=== PATIENT | female | born 1960 | race American Indian/Alaskan Native ===

== ENCOUNTER 2018-01-18 16:12 | Emergency (ER) | payer OTHER ==
[~2018-01-18] VITALS: Ht 160 cm; Wt 126.1 kg
[2018-01-18 17:10] LABS: PLATELET COUNT 231 K/uL (152-353)
[2018-01-18 17:33] LABS: PARTIAL THROMBOPLASTIN TIME 26.6 SECONDS (24.5-33.6)
[2018-01-18 18:00] VITALS: BP 152/76; TEMP 97.9
== END 2018-01-18 18:00 | disposition home or self-care (01) ==
LOC: ED 16:12
DX: R04.0 Epistaxis (principal); I10 Essential (primary) hypertension
CPT/HCPCS: 36415; 85027; 85610; 85730; 99283

== ENCOUNTER 2018-04-06 19:45 | Emergency (ER) | payer OTHER ==
[~2018-04-06] VITALS: Ht 160 cm; Wt 127.0 kg
[2018-04-06 19:50] VITALS: TEMP 98.3
[2018-04-06 21:25] VITALS: BP 120/81
== END 2018-04-06 21:27 | disposition home or self-care (01) ==
LOC: ED 19:45
DX: S52.501A Unspecified fracture of the lower end of right radius, initial encounter for closed fracture (principal); W10.8XXA Fall (on) (from) other stairs and steps, initial encounter; Y93.89 Activity, other specified; Y92.89 Other specified places as the place of occurrence of the external cause; Y99.8 Other external cause status
CPT/HCPCS: 96372; 99283; J1885; L3908

== ENCOUNTER 2020-03-29 12:13 | Emergency (ER) | payer OTHER ==
[~2020-03-29] VITALS: Ht 162.6 cm; Wt 123.8 kg
[2020-03-29 12:15] VITALS: TEMP 98.6
[2020-03-29 13:12] LABS: PLATELET COUNT 219 K/uL (152-353)
[2020-03-29 13:26] LABS: PARTIAL THROMBOPLASTIN TIME 27.1 SECONDS (24.5-33.6)
[2020-03-29 13:41] LABS: POTASSIUM 3.4 mmol/L (3.6-5.2)
[2020-03-29 14:57] VITALS: BP 142/89
== END 2020-03-29 15:04 | disposition home or self-care (01) ==
LOC: ED 12:13
PROVIDERS: Family Medicine
DX: R04.0 Epistaxis (principal); N39.0 Urinary tract infection, site not specified; E87.6 Hypokalemia
CPT/HCPCS: 80053; 81000; 85027; 85610; 85730; 87077; 87086; 87088; 87186; 99283

== ENCOUNTER 2020-03-29 15:26 | Emergency (ER) | payer OTHER ==
[~2020-03-29] VITALS: Ht 162.6 cm; Wt 123.8 kg
[2020-03-29 18:52] VITALS: BP 183/82; TEMP 98.6
== END 2020-03-29 18:52 | disposition home or self-care (01) ==
LOC: ED 15:57
PROC: 2Y41X5Z Packing of Nasal Region using Packing Material (ICD-10-PCS; principal; 2020-03-29)
DX: R04.0 Epistaxis (principal); I10 Essential (primary) hypertension
CPT/HCPCS: 99283

== ENCOUNTER 2020-06-14 02:41 | Emergency (ER) | payer OTHER ==
[~2020-06-14] VITALS: Ht 162.6 cm; Wt 126.6 kg
[2020-06-14 04:17] VITALS: BP 150/73; TEMP 98.1
== END 2020-06-14 04:17 | disposition home or self-care (01) ==
LOC: ED 02:41
DX: S16.1XXA Strain of muscle, fascia and tendon at neck level, initial encounter (principal)
CPT/HCPCS: 96372; 99283; J2175; J2550

== ENCOUNTER 2020-11-17 00:55 | Emergency (ER) | payer OTHER ==
[~2020-11-17] VITALS: Ht 162.6 cm; Wt 123.4 kg
[2020-11-17 02:10] VITALS: BP 151/81; TEMP 97.9
== END 2020-11-17 02:10 | disposition home or self-care (01) ==
LOC: ED 00:55
PROC: 2Y41X5Z Packing of Nasal Region using Packing Material (ICD-10-PCS; principal; 2020-11-17)
DX: R04.0 Epistaxis (principal); I10 Essential (primary) hypertension
CPT/HCPCS: 99283

== ENCOUNTER 2020-11-21 04:10 | Emergency (ER) | payer OTHER ==
[~2020-11-21] VITALS: Ht 162.6 cm; Wt 123.4 kg
[2020-11-21 04:10] VITALS: TEMP 98.1
[2020-11-21 07:35] VITALS: BP 115/56
== END 2020-11-21 07:35 | disposition home or self-care (01) ==
LOC: ED 04:10
PROC: 2Y41X5Z Packing of Nasal Region using Packing Material (ICD-10-PCS; principal; 2020-11-21)
DX: R04.0 Epistaxis (principal)
CPT/HCPCS: 99282

== ENCOUNTER 2020-12-16 01:07 | Emergency (ER) | payer OTHER ==
[~2020-12-16] VITALS: Ht 162.6 cm; Wt 124.3 kg
[2020-12-16 03:25] VITALS: BP 164/82; TEMP 98
== END 2020-12-16 03:25 | disposition home or self-care (01) ==
LOC: ED 01:07
DX: S91.332A Puncture wound without foreign body, left foot, initial encounter (principal); W45.0XXA Nail entering through skin, initial encounter; Y92.098 Other place in other non-institutional residence as the place of occurrence of the external cause
CPT/HCPCS: 90471; 90715; 96372; 99283; J0696; J1885

== ENCOUNTER 2021-04-02 03:30 | Emergency (ER) | payer OTHER ==
[~2021-04-02] VITALS: Ht 162.6 cm; Wt 124.3 kg
[2021-04-02 04:38] LABS: PLATELET COUNT 205 K/uL (152-353)
[2021-04-02 04:54] LABS: POTASSIUM 3.9 mmol/L (3.6-5.2)
[2021-04-02 05:11] LABS: PARTIAL THROMBOPLASTIN TIME 25.8 SECONDS (24.5-33.6)
[2021-04-02 05:45] VITALS: BP 163/80; TEMP 98
== END 2021-04-02 05:45 | disposition home or self-care (01) ==
LOC: ED 03:40
PROVIDERS: Family Medicine
PROC: 2Y41X5Z Packing of Nasal Region using Packing Material (ICD-10-PCS; principal; 2021-04-02)
DX: R04.0 Epistaxis (principal); Z98.890 Other specified postprocedural states
CPT/HCPCS: 36415; 80053; 85027; 85610; 85730; 96374; 99284; J0360

== ENCOUNTER 2021-10-08 06:08 | Emergency (ER) | payer OTHER ==
[~2021-10-08] VITALS: Ht 160 cm; Wt 126.6 kg
[2021-10-08 06:10] VITALS: TEMP 98.4
[2021-10-08 07:14] VITALS: BP 156/75
== END 2021-10-08 07:14 | disposition home or self-care (01) ==
LOC: ED 06:08
PROC: 2W3LX1Z Immobilization of Right Lower Extremity using Splint (ICD-10-PCS; principal; 2021-10-08)
DX: M17.11 Unilateral primary osteoarthritis, right knee (principal); M25.561 Pain in right knee
CPT/HCPCS: 96372; 99283; J1885; J2930

== ENCOUNTER 2022-05-23 04:51 | Emergency (ER) | payer OTHER ==
[~2022-05-23] VITALS: Ht 160 cm; Wt 130.2 kg
[2022-05-23 05:00] VITALS: TEMP 96.6
[2022-05-23 05:35] LABS: PLATELET COUNT 185 K/uL (152-353)
[2022-05-23 05:43] LABS: POTASSIUM 3.6 mmol/L (3.6-5.2)
[2022-05-23 06:03] LABS: PARTIAL THROMBOPLASTIN TIME 26.3 SECONDS (24.5-33.6)
[2022-05-23 06:28] VITALS: BP 143/69
== END 2022-05-23 06:28 | disposition home or self-care (01) ==
LOC: ED 04:51
PROVIDERS: Hospitalist
DX: I16.0 Hypertensive urgency (principal); R04.0 Epistaxis; F17.210 Nicotine dependence, cigarettes, uncomplicated
CPT/HCPCS: 36415; 80053; 82550; 83880; 84484; 85027; 85610; 85730; 93005; 99283

== ENCOUNTER 2023-02-18 17:16 | Emergency (ER) | payer OTHER ==
[~2023-02-18] VITALS: Ht 160 cm; Wt 130.2 kg
[2023-02-18 17:44] VITALS: TEMP 100.4
[2023-02-18 19:18] LABS: PLATELET COUNT 248 K/uL (152-353)
[2023-02-18 19:22] LABS: POTASSIUM 3.9 mmol/L (3.6-5.2)
[2023-02-18 22:08] VITALS: BP 162/62
== END 2023-02-18 21:50 | disposition home or self-care (01) ==
LOC: ED 17:16
PROVIDERS: Family Medicine
DX: R04.0 Epistaxis (principal); J40 Bronchitis, not specified as acute or chronic; I16.0 Hypertensive urgency
CPT/HCPCS: 80053; 80307; 81002; 85027; 96374; 96375; 99284; J0360; J3490